=== PATIENT | male | born 1975 | race Asian ===

== ENCOUNTER 2020-01-18 20:34 | Emergency (ER) | payer OTHER ==
[~2020-01-18] VITALS: Ht 175.3 cm; Wt 63.6 kg
[2020-01-18] MEDS ORDERED: PERTUSS(ACELL),DIPH,TET VAC/PF 0.5 ML VIAL IM ONE (23:15)
[2020-01-18] MEDS ORDERED: BACITRACIN 0.9 GM PACKET OINTMENT TP ONE (23:30)
[2020-01-18 23:41] VITALS: BP 150/98
== END 2020-01-18 23:42 | disposition home or self-care (01) ==
LOC: EMS 20:34
DX: S81.811A Laceration without foreign body, right lower leg, initial encounter (principal); V19.9XXA Pedal cyclist (driver) (passenger) injured in unspecified traffic accident, initial encounter; Y93.55 Activity, bike riding; Y92.89 Other specified places as the place of occurrence of the external cause; Y99.8 Other external cause status
CPT/HCPCS: 90471; 90715